=== PATIENT | male | born 1940 | race Caucasian/White ===

== ENCOUNTER 2017-01-20 11:50 | Emergency (ER) | payer MEDICARE, BC ==
[2017-01-20 12:36] VITALS: BP 147/64
--- NOTE | 2017-01-20 13:13 | UC ---
Skin Complaint HPI - HPI Summary HPI Summary: Tick attached to left shoulder for less than 12 hours - History of Current Complaint Chief Complaint: UCSkin Time Seen by Provider: 01/20/17 13:12 Stated Complaint: TICK BITE Hx Obtained From: Patient Onset/Duration: Sudden Onset, Lasting Hours, Worse Since Timing: Constant Current Severity: None Location: Discrete - roght shoulder Character: Redness - at attachment site Aggravating: Nothing Alleviating: Nothing Associated Signs & Symptoms: Positive: Negative Related History: Possible Reaction to: Insect - Allergy/Home Medications Allergies/Adverse Reactions: Allergies Allergy/AdvReac Type Severity Reaction Status Date / Time No Known Allergies Allergy Verified 09/24/15 09:20 Review of Systems Constitutional: Negative Skin: Negative Eyes: Negative ENT: Negative Respiratory: Negative Cardiovascular: Negative Gastrointestinal: Negative Genitourinary: Negative Motor: Negative Neurovascular: Negative Musculoskeletal: Negative Neurological: Negative Psychological: Negative All Other Systems Reviewed And Are Negative: Yes PMH/Surg Hx/FS Hx/Imm Hx Previously Healthy: Yes - Surgical History Surgical History: Yes Surgery Procedure, Year, and Place: 2001- RIGHT KNEE ARTHROSCOPY-[facility] – [place] - Family History Known Family History: Positive: None Family History: no cardiovascular issues reported in family lineage - Social History Occupation: Retired Lives: With Family Alcohol Use: Occasionally Substance Use Type: None Smoking Status (MU): Former Smoker When Did the Patient Quit Smoking/Using Tobacco: 55 YRS AGO Physical Exam Triage Information Reviewed: Yes Appearance: Well-Appearing, No Pain Distress, Well-Nourished Vital Signs: Initial Vital Signs Temp 98.2 F 01/20/17 12:35 Pulse 52 01/20/17 12:35 Resp 16 01/20/17 12:35 BP 147/64 01/20/17 12:35 Pulse Ox 100 01/20/17 12:35 Vital Signs Reviewed: Yes Eye Exam: Normal Eyes: Positive: Conjunctiva Clear ENT Exam: Normal ENT: Positive: Normal ENT inspection, Hearing grossly normal, Pharynx normal, TMs normal. Negative: Nasal congestion, Nasal drainage, Tonsillar swelling, Tonsillar exudate, Trismus, Muffled/hoarse voice Dental Exam: Normal Neck exam: Normal Neck: Positive: Supple, Nontender, No Lymphadenopathy Respiratory Exam: Normal Respiratory: Positive: Chest non-tender, Lungs clear, Normal breath sounds, No respiratory distress, No accessory muscle use Cardiovascular Exam: Normal Cardiovascular: Positive: RRR, No Murmur, Pulses Normal, Brisk Capillary Refill Musculoskeletal Exam: Normal Musculoskeletal: Positive: Strength Intact, ROM Intact, No Edema Neurological Exam: Normal Neurological: Positive: Alert, Muscle Tone Normal Psychological Exam: Normal Skin Exam: Other Skin: Positive: Other - less than dime size erythemic area at tick site Course/Dx - Course Course Of Treatment: soap and water wash, follow BP with PCP, observe for s/s of Lyme and report to MD - Differential Diagnoses - Skin Complaint Differential Diagnoses: Impetigo, Local Allergic Reaction, Tick Born Illness - Diagnoses Provider Diagnoses: Hypertension in poor control, Tick exposure Discharge - Discharge Plan Condition: Stable Disposition: HOME Patient Education Materials: Lyme Disease (ED), DASH Eating Plan (ED), Hypertension (ED) Referrals: Jude Perez MD [Primary Care Provider] - 2 Weeks
== END 2017-01-20 13:18 | disposition home or self-care (01) ==
LOC: UCEAST 11:50
DX: S40.262A Insect bite (nonvenomous) of left shoulder, initial encounter (principal); W57.XXXA Bitten or stung by nonvenomous insect and other nonvenomous arthropods, initial encounter; Y93.9 Activity, unspecified; Y92.9 Unspecified place or not applicable; Y99.9 Unspecified external cause status; I10 Essential (primary) hypertension
CPT/HCPCS: 99211; G0463

== ENCOUNTER 2017-08-14 08:52 | Emergency (ER) | payer MEDICARE, BC ==
[2017-08-14 09:13] VITALS: BP 138/64
--- NOTE | 2017-08-14 09:54 | UC ---
Throat Pain/Nasal Allan HPI - HPI Summary HPI Summary: Patient presents with a past medical history f HTN, and Hyperlipidemia. He presents today with complaints of very painful sore throat, hoarse voice, and loose congested cough. He denies fever, chills, chest pain, dyspnea, abdominal pain, nausea, vomiting, diarrhea, rash or joint pain. - History of Current Complaint Chief Complaint: UCRespiratory Stated Complaint: SORE THROAT COUGH Time Seen by Provider: 08/14/17 09:02 Hx Obtained From: Patient Onset/Duration: Gradual Onset, Lasting Days Severity: Moderate Cough: Nonproductive Associated Signs & Symptoms: Positive: Hoarseness, Nasal Discharge - Epiglottits Risk Factors Epiglottis Risk Factors: Negative - Allergies/Home Medications Allergies/Adverse Reactions: Allergies Allergy/AdvReac Type Severity Reaction Status Date / Time No Known Allergies Allergy Verified 08/14/17 09:09 PMH/Surg Hx/FS Hx/Imm Hx Previously Healthy: Yes Cardiovascular History: Hypertension - Surgical History Surgical History: Yes Surgery Procedure, Year, and Place: 2001- [place] AR[facility]ROSCOPY[place] – [place] - Family History Known Family History: Positive: None, Other - cancer Family History: no cardiovascular issues reported in family lineage - Social History Occupation: Retired Lives: Alone Alcohol Use: Occasionally Substance Use Type: None Smoking Status (MU): Former Smoker When Did the Patient Quit Smoking/Using Tobacco: 55 YRS AGO Review of Systems Constitutional: Negative Skin: Negative Eyes: Negative ENT: Sore Throat Respiratory: Negative Cardiovascular: Negative Gastrointestinal: Negative Genitourinary: Negative Motor: Negative Neurovascular: Negative Musculoskeletal: Negative Neurological: Negative Psychological: Negative Is Patient Immunocompromised?: No All Other Systems Reviewed And Are Negative: Yes Physical Exam Triage Information Reviewed: Yes Appearance: Well-Appearing Vital Signs: Initial Vital Signs Temp 99.6 F 08/14/17 09:10 Pulse 58 08/14/17 09:10 Resp 16 08/14/17 09:10 BP 138/64 08/14/17 09:10 Pulse Ox 100 08/14/17 09:10 Vital Signs Reviewed: Yes Eye Exam: Normal ENT: Positive: Pharyngeal erythema Neck exam: Normal Respiratory Exam: Normal Cardiovascular Exam: Normal Skin Exam: Normal Throat Pain/Nasal Course/Dx - Course Course Of Treatment: Patient presents with a past medical history of HTN, Hyperlipidemia/ He presents today with sore throat, he is able to eat, drink, and handle his own secretions. Rapid strep was negative, however he does have low grade fever, and clinically I stiff feel his has a strep pharyngitis although not strep A/B perhaps strep C therfore I will treat prumtpively with zkp, and cepacol lozengers. The discharge plan was discussed with and in a greement with the patient. - Differential Dx/Diagnosis Differential Diagnosis/HQI/PQRI: Pharyngitis Provider Diagnoses: pharyngitis Discharge - Discharge Plan Condition: Stable Disposition: HOME Prescriptions: Azithromycin TAB* [Zithromax TAB (Z-RANI) 250 mg #6 tabs] 250 mg PO DAILY #6 tab Menthol (Mouth-Throat) [Cepacol Sore Throat] 5.4 mg MT QID PRN #1 box PRN Reason: Sore Throat Patient Education Materials: Pharyngitis (ED) Referrals: Jude Perez MD [Primary Care Provider] -
== END 2017-08-14 09:43 | disposition home or self-care (01) ==
LOC: UCEAST 08:52
DX: J02.9 Acute pharyngitis, unspecified (principal); I10 Essential (primary) hypertension; Z87.891 Personal history of nicotine dependence
CPT/HCPCS: 87651; 99212; G0463

== ENCOUNTER 2017-12-10 09:27 | Emergency (ER) | payer MEDICARE, BC ==
[2017-12-10 09:36] VITALS: BP 149/77
[2017-12-10] MEDS ORDERED: Tetan/Diph/Pertus SYR(Tdap)* 0.5 ML SYR(BOOSTRIX) use SYR IM ONE (09:42)
--- NOTE | 2017-12-10 09:44 | UC ---
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 Onset/Duration: Sudden Onset, Lasting Days - 1, Still Present Timing: Constant Onset Severity: Moderate Current Severity: Moderate Pain Intensity: 5 Pain Scale Used: 0-10 Numeric Location: Discrete Character: Redness Aggravating Factor(s): Touch Alleviating Factor(s): Nothing Associated Signs & Symptoms: Positive: Tenderness - Allergy/Home Medications Allergies/Adverse Reactions: Allergies Allergy/AdvReac Type Severity Reaction Status Date / Time No Known Allergies Allergy Verified 12/10/17 09:36 Review of Systems Constitutional: Negative Skin: Other - Erythema on his left hand around the site of the puncture wound from a screwdriver in the webspace between his thumb and second finger Eyes: Negative ENT: Negative Respiratory: Negative Cardiovascular: Negative Gastrointestinal: Negative Genitourinary: Negative Motor: Negative Neurovascular: Negative Musculoskeletal: Negative Neurological: Negative Psychological: Negative Is Patient Immunocompromised?: No All Other Systems Reviewed And Are Negative: Yes PMH/Surg Hx/FS Hx/Imm Hx Previously Healthy: No Endocrine History: Dyslipidemia Cardiovascular History: Hypertension - Surgical History Surgical History: Yes Surgery Procedure, Year, and Place: 2001- RIGHT KNEE ARTHROSCOPY-[facility] – [place] - Family History Known Family History: Positive: None, Other - cancer Family History: no cardiovascular issues reported in family lineage - Social History Occupation: Retired Lives: With Family Alcohol Use: Daily Substance Use Type: None Smoking Status (MU): Former Smoker When Did the Patient Quit Smoking/Using Tobacco: 55 YRS AGO Physical Exam Triage Information Reviewed: Yes Appearance: Well-Appearing, No Pain Distress, Well-Nourished Vital Signs: Initial Vital Signs Temp 97.9 F 12/10/17 09:32 Pulse 53 12/10/17 09:32 Resp 18 12/10/17 09:32 BP 149/77 12/10/17 09:32 Pulse Ox 100 12/10/17 09:32 Vital Signs Reviewed: Yes Eye Exam: Normal Eyes: Positive: Conjunctiva Clear ENT Exam: Normal ENT: Positive: Normal ENT inspection, Hearing grossly normal. Negative: Nasal congestion, TMs normal, Tonsillar swelling, Tonsillar exudate, Trismus, Muffled voice, Hoarse voice, Dental tenderness, Sinus tenderness Dental Exam: Normal Neck exam: Normal Neck: Positive: Supple, Nontender, No Lymphadenopathy Respiratory Exam: Normal Respiratory: Positive: Chest non-tender, No respiratory distress, No accessory muscle use Cardiovascular Exam: Normal Cardiovascular: Positive: RRR, Pulses Normal, Brisk Capillary Refill Musculoskeletal Exam: Normal Musculoskeletal: Positive: Strength Intact, ROM Intact, Edema @ - Some swelling to the webspace between his thumb and index finger Neurological Exam: Normal Neurological: Positive: Alert, Muscle Tone Normal Psychological Exam: Normal Skin Exam: Other Skin: Positive: Other - Puncture wound about 3 mm in diameter Course/Dx - Course Course Of Treatment: Warm soaks every couple hours while awake for the next couple days until erythema resolves, Augmentin, update tetanus, follow with PCP this week and to get blood pressure recheck. To emergency department for worsening of the wound worsening pain decreased range of motion fevers chills or streaking - Diagnoses Provider Diagnoses: Puncture wound to the left left hand between thumb and index finger, update tetanus, elevated blood pressure in poor control. Discharge - Sign-Out/Discharge Documenting (check all that apply): Discharge - Discharge Plan Condition: Stable Disposition: HOME Prescriptions: Amoxicillin/Clavulanate TAB* [Augmentin TAB 875*] 875 mg PO BID #20 tab Patient Education Materials: Diphtheria/Acellular Pertussis/Tetanus Booster Vaccine (By injection), Puncture Wound (ED), Cellulitis (ED), Hypertension (ED) , Warm Compress or Soak (ED) Referrals: Jude Perez MD [Primary Care Provider] - 1 Week - Billing Disposition and Condition Condition: STABLE Disposition: HOME
== END 2017-12-10 10:05 | disposition home or self-care (01) ==
LOC: UCEAST 09:27
DX: S61.432A Puncture wound without foreign body of left hand, initial encounter (principal); W27.0XXA Contact with workbench tool, initial encounter; Y93.9 Activity, unspecified; Y92.9 Unspecified place or not applicable; Z23 Encounter for immunization; E78.5 Hyperlipidemia, unspecified; I10 Essential (primary) hypertension; Z87.891 Personal history of nicotine dependence
CPT/HCPCS: 90715; 96372; 99212; G0463

== ENCOUNTER 2019-08-27 10:50 | Emergency (ER) | payer MEDICARE, BC ==
[2019-08-27 10:58] VITALS: BP 151/72
--- NOTE | 2019-08-27 11:03 | UC ---
Ear Complaint HPI - HPI Summary HPI Summary: 78 yo male presents with ?plugged ear. He tells me that over the last 2 days he has noticed decreased hearing and feelings of fullness in his RIGHT ear. He has had issues with cerumen impaction before and believes this is the cause of his symptoms today. He did have a cold several weeks ago, but this has resolved. Denies fever, chills, headache, sinus symptoms, sore throat, cough. - History of Current Complaint Chief Complaint: UCEar Stated Complaint: PLUGGED EAR Time Seen by Provider: 08/27/19 11:03 Hx Obtained From: Patient Onset/Duration: Gradual Onset Severity Currently: None Pain Intensity: 0 Pain Scale Used: 0-10 Numeric - Allergies/Home Medications Allergies/Adverse Reactions: Allergies Allergy/AdvReac Type Severity Reaction Status Date / Time No Known Allergies Allergy Verified 08/27/19 10:59 PMH/Surg Hx/FS Hx/Imm Hx Endocrine History: Dyslipidemia Cardiovascular History: Hypertension - Surgical History Surgical History: Yes Surgery Procedure, Year, and Place: 2001- RIGHT KNEE ARTHROSCOPY-[facility] – [place] - Family History Known Family History: Positive: None - Social History Lives: With Family Alcohol Use: Daily Substance Use Type: None Smoking Status (MU): Former Smoker When Did the Patient Quit Smoking/Using Tobacco: 55 YRS AGO Review of Systems All Other Systems Reviewed And Are Negative: No Constitutional: Positive: Negative Skin: Positive: Negative Eyes: Positive: Negative ENT: Positive: Ear Ache Respiratory: Positive: Negative Cardiovascular: Positive: Negative Gastrointestinal: Positive: Negative Neurological: Positive: Negative Psychological: Positive: Negative Physical Exam - Summary Physical Exam Summary: GENERAL: NAD. WDWN. No pain distress. SKIN: No rashes, sores, lesions, or open wounds. HEENT: Head: AT/NC Eyes: EOM intact. Conjunctiva clear without inflammation or discharge. Ears: Hearing grossly normal. B/L TMs occluded by brown/yellow cerumen. s/p irrigation: TMs intact, no bulging, erythema, or edema. Nose: Nasal mucosa pink and moist. NTTP maxillary and frontal sinus. Throat: Posterior oropharynx without exudates, erythema, or tonsillar enlargement. Uvula midline. NECK: Supple. Nontender. No lymphadenopathy. CHEST: CTAB. No r/r/w. No accessory muscle use. Breathing comfortably and in no distress. CV: RRR. Pulses intact. Cap refill <2seconds NEURO: Alert. PSYCH: Age appropriate behavior. Triage Information Reviewed: Yes Vital Signs: Initial Vital Signs Temp 97.8 F 08/27/19 10:56 Pulse 61 08/27/19 10:56 Resp 16 08/27/19 10:56 BP 151/72 08/27/19 10:56 Pulse Ox 100 08/27/19 10:56 Vital Signs Reviewed: Yes Ear Complaint Course/Dx - Course Course Of Treatment: B/L cerumen impaction with successful disimpaction via irrigation by nursing. TMs WNL and intact s/p - Differential Dx/Diagnosis Provider Diagnosis: Cerumen impaction Discharge ED - Sign-Out/Discharge Documenting (check all that apply): Patient Departure All imaging exams completed and their final reports reviewed: No Studies - Discharge Plan Condition: Stable Disposition: HOME Patient Education Materials: Cerumen Impaction (ED) Referrals: Jude Perez MD [Primary Care Provider] - - Billing Disposition and Condition Condition: STABLE Disposition: Home - Attestation Statements Provider Attestation: This patient was not seen by me. I was available for consult. Chart reviewed. JANUARY
== END 2019-08-27 11:20 | disposition home or self-care (01) ==
LOC: UCEAST 10:50
DX: H61.23 Impacted cerumen, bilateral (principal); E78.5 Hyperlipidemia, unspecified; I10 Essential (primary) hypertension; Z79.82 Long term (current) use of aspirin; Z87.891 Personal history of nicotine dependence
CPT/HCPCS: 99213; G0463